=== PATIENT | male | born 1950 | race Caucasian/White ===

== ENCOUNTER 2019-10-26 07:46 | Inpatient (IN) ==
[2019-10-26] MEDS ORDERED: Regadenoson 0.4 MG/5 ML SYRINGE IVP ONE (08:05)
[2019-10-26] MEDS ORDERED: Naloxone 0.4 MG/ML INJ IVP PRN (10:54)
[2019-10-26] MEDS ORDERED: Perflutren Lipid Microsphere 1.3 ML in 0.9 % Sodium Chloride 8.7 ML IVP PRN (11:00)
[2019-10-26] MEDS ORDERED: *HR* Heparin 10,000 UNIT/10 ML VIAL ONE (12:13)
[2019-10-26] MEDS ORDERED: Nitroglycerin 1,000 MCG/10 ML VIAL IV ONE (12:13)
[2019-10-26] MEDS ORDERED: ISOVUE-370 200 ML INFUS..BTL ONE (12:13)
[2019-10-26] MEDS ORDERED: Heparin 1,000 UNITS/500 mL 500 ML ONE (12:13)
[2019-10-26] MEDS ORDERED: 0.9 % Sodium Chloride 1,000 ML ONE ×2 (12:13→12:21)
[2019-10-26] MEDS ORDERED: *HR* Midazolam HCl 2 MG/2 ML VIAL ONE (12:21)
[2019-10-26] MEDS ORDERED: *HR* FentaNYL (PF) 100 MCG/2 ML VIAL ONE (12:21)
[2019-10-26 12:36] LABS: Prothrombin Time 11.5 Seconds (9.4-12.1)
[2019-10-26 12:52] LABS: Chol/HDL Ratio 4.7 (0-4.9)
[2019-10-26] MEDS ORDERED: Ondansetron 4 MG/2 ML VIAL IVP PRN (14:00)
[2019-10-26] MEDS ORDERED: Acetaminophen 325 MG TABLET PO PRN (14:00)
[2019-10-26] MEDS ORDERED: Nitroglycerin 0.4 MG TAB.SUBL SL PRN (14:00)
[2019-10-26] MEDS ORDERED: 0.9 % Sodium Chloride 1,000 ML IVC SCH (14:00)
[2019-10-26] MEDS ORDERED: *HR* Dextrose 50 % in Water (Vial) 50 ML VIAL IVP PRN (14:02)
[2019-10-26] MEDS ORDERED: D5% in Water 1,000 ML IVC PRN (14:02)
[2019-10-26] MEDS ORDERED: Dextrose Gel 15 GM/37.5 ML TUBE PO PRN ×2 (14:02)
[2019-10-26] MEDS ORDERED: *HR* Heparin 5,000 UNIT/ML VIAL IVP PRN (15:19)
[2019-10-26] MEDS ORDERED: *HR* Heparin 5,000 UNIT/ML VIAL IVP ONE (15:19)
[2019-10-26 16:13] LABS: Hematocrit 44.4 % (37.5-50.1); Hemoglobin 14.7 g/dL (12.9-16.9); Mean Corpuscular HGB Conc 33.1 g/dL (31.6-35.5); Mean Corpuscular Hemoglobin 29.6 pg (28.0-33.3); Mean Corpuscular Volume 89.3 fL (83.0-100.0); Mean Platelet Volume 10.7 fL (9.4-12.4); Platelet Count 160 K/mcL (140-400); Red Blood Count 4.97 M/mcL (4.19-5.50); Red Cell Distribution Width 13.4 % (11.5-14.5); White Blood Count 5.7 K/mcL (4.3-11.1)
[2019-10-26] MEDS: Insulin LISPRO 300 UNITS/3 ML VIAL SQ SCH (16:15)
[2019-10-26] MEDS: Heparin 25,000 UNIT/250 ML D5W 25,000 UNIT/250 ML IV.SOLN IVC SCH (16:29)
[2019-10-26 16:43] LABS: Chol/HDL Ratio 5.1 (0-4.9)
[2019-10-26 22:17] LABS: Bilirubin,Urine Negative (Negative); Blood,Urine Small (Negative); Clarity,Urine Clear (Clear); Color,Urine Colorless (Yellow); Glucose,Urine (UA) 30 mg/dL (Normal); Ketones,Urine Negative (Negative); Leukocyte Esterase,Urine Negative (Negative); Mucus,Urine Few per lpf (None-Few); Nitrite,Urine Negative (Negative); PH,Urine 6.5 pH Units (5.0-8.0); Protein,Urine Negative (Neg-Trace); Specific Gravity,Urine 1.019 (1.010-1.025); Urobilinogen,Urine Normal (Normal); WBC,Urine 0-3 per hpf (0-3)
[2019-10-27] MEDS: *HR* Heparin 5,000 UNIT/ML VIAL IVP PRN ×2 (00:42→15:04)
[2019-10-27 06:59] LABS: Basophils # 0.1 K/mcL (0.0-0.2); Basophils % 0.5 %; Eosinophils # 0.1 K/mcL (0.0-0.6); Eosinophils % 1.1 %; Hematocrit 47.8 % (37.5-50.1); Hemoglobin 15.8 g/dL (12.9-16.9); Immature Granulocytes % 0.2 % (0-4); Lymphocytes # 1.8 K/mcL (0.6-4.6); Lymphocytes % 19.2 %; Mean Corpuscular HGB Conc 33.1 g/dL (31.6-35.5); Mean Corpuscular Hemoglobin 29.8 pg (28.0-33.3); Mean Platelet Volume 10.5 fL (9.4-12.4); Monocytes # 0.6 K/mcL (0.0-1.3); Monocytes % 6.6 %; Neutrophils # 6.8 K/mcL (1.6-8.9); Platelet Count 213 K/mcL (140-400); Red Blood Count 5.31 M/mcL (4.19-5.50); Red Cell Distribution Width 13.5 % (11.5-14.5); Segmented Neutrophils % 72.4 %
[2019-10-27 07:08] LABS: White Blood Count 9.4 K/mcL (4.3-11.1)
[2019-10-27 07:12] LABS: BUN/Creatinine Ratio 20 (6-26); Blood Urea Nitrogen 19 mg/dL (8-23); Calcium 10.1 mg/dL (8.6-10.3); Carbon Dioxide 26 mEq/L (23-29); Chloride 100 mEq/L (98-107); Glucose 167 mg/dL (70-105); Osmolality,Calculated 290 (280-300); Potassium 4.1 mEq/L (3.5-5.1); Sodium 137 mEq/L (136-145); eGFR For African Americans > 60 (> 60); eGFR For Non-African Americans > 60 (> 60)
[2019-10-27 07:27] LABS: Estimated Average Glucose 171 mg/dl
[2019-10-27] MEDS: Insulin LISPRO 300 UNITS/3 ML VIAL SQ SCH ×3 (08:49→16:44)
[2019-10-27] MEDS ORDERED: Aspirin 81 MG TAB.CHEW PO SCH (09:00)
[2019-10-27] MEDS: Heparin 25,000 UNIT/250 ML D5W 25,000 UNIT/250 ML IV.SOLN IVC SCH (15:25)
[2019-10-27] MEDS: Chlorhexidine Rinse 15 ML MOUTHWASH MM SCH (21:13)
[2019-10-28] MEDS: Chlorhexidine Rinse 15 ML MOUTHWASH MM SCH ×2 (05:42→19:29)
[2019-10-28] MEDS ORDERED: Aspirin 81 MG TAB.CHEW PO ONE (06:00)
[2019-10-28] MEDS ORDERED: NiCARdipine 2.5 MG/10 ML Syringe IVPB ONE (06:28)
[2019-10-28] MEDS ORDERED: *HR* Midazolam HCl 5 MG/5 ML VIAL IVP ONE (06:32)
[2019-10-28] MEDS ORDERED: *HR* FentaNYL (PF) 1,000 MCG/20 ML VIAL ONE (06:32)
[2019-10-28] MEDS ORDERED: *HR* Etomidate 20 MG/10 ML AMPUL IVP ONE (06:35)
[2019-10-28] MEDS ORDERED: Famotidine 20 MG/2 ML VIAL ONE (06:35)
[2019-10-28] MEDS ORDERED: Protamine Sulfate 250 MG/25 ML VIAL IVP ONE (06:37)
[2019-10-28] MEDS ORDERED: Calcium Gluconate 1,000 MG/10 ML VIAL ONE (06:37)
[2019-10-28] MEDS ORDERED: Tranexamic Acid 1,000 MG/10 ML VIAL ONE ×3 (06:37→11:03)
[2019-10-28] MEDS ORDERED: CeFAZolin Syr 2,000MG/20 ML 2,000 MG/20 ML SYRINGE IVPB ONE (07:00)
[2019-10-28] MEDS ORDERED: Dextrose 50 % in Water (Vial) 30 ML, Sodium Bicarbonate 20 MEQ, Potassium Chloride 15 M... TH ONE (07:45)
[2019-10-28] MEDS ORDERED: Dextrose 50 % in Water (Vial) 30 ML, Sodium Bicarbonate 20 MEQ, Lidocaine 1% 5 ML, Insu... TH ONE ×3 (07:45)
[2019-10-28] MEDS ORDERED: Heparin 15,000 UNIT in 0.9 % Sodium Chloride 500 ML IV ONE (07:45)
[2019-10-28] MEDS ORDERED: Insulin Human Regular 100 UNIT in 0.9 % Sodium Chloride 100 ML IV PRN (07:45)
[2019-10-28] MEDS ORDERED: Norepinephrine 4 MG in 0.9 % Sodium Chloride 250 ML IVC PRN (07:45)
[2019-10-28 08:16] LABS: ABG Base Excess -2 mEq/L (-2 to 3); ABG Chloride 105 mEq/L (98-107); ABG Glucose 201 mg/dL (60-95); ABG HCO3 24 mEq/L (21-27); ABG Ionized Calcium 1.15 mmol/L (1.15-1.35); ABG Oxygen Saturation 99 % (95-98); ABG PCO2 44 mmHg (35-45); ABG PH 7.34 pH Units (7.32-7.45); ABG PO2 139 mmHg (85-104); ABG TCO2 25 mEq/L (20-26)
[2019-10-28] MEDS ORDERED: niCARdipine 40 MG/200 ML MLS IVC ONE (08:40)
[2019-10-28 09:21] LABS: ABG Base Excess -5 mEq/L (-2 to 3); ABG Chloride 107 mEq/L (98-107); ABG Glucose 219 mg/dL (60-95); ABG HCO3 22 mEq/L (21-27); ABG Ionized Calcium 0.97 mmol/L (1.15-1.35); ABG Oxygen Saturation 98 % (95-98); ABG PCO2 45 mmHg (35-45); ABG PO2 107 mmHg (85-104); ABG TCO2 23 mEq/L (20-26)
[2019-10-28] MEDS ORDERED: *HR* PHENYLEPHRINE 1,000 MCG/10 ML SYRINGE IVP ONE (09:26)
[2019-10-28 09:57] LABS: ABG Base Excess 1 mEq/L (-2 to 3); ABG Chloride 99 mEq/L (98-107); ABG Glucose 246 mg/dL (60-95); ABG HCO3 26 mEq/L (21-27); ABG Ionized Calcium 1.02 mmol/L (1.15-1.35); ABG Oxygen Saturation 100 % (95-98); ABG PCO2 44 mmHg (35-45); ABG PH 7.38 pH Units (7.32-7.45); ABG PO2 605 mmHg (85-104); ABG TCO2 27 mEq/L (20-26)
[2019-10-28 10:38] LABS: ABG Base Excess 1 mEq/L (-2 to 3); ABG Chloride 100 mEq/L (98-107); ABG Glucose 267 mg/dL (60-95); ABG HCO3 26 mEq/L (21-27); ABG Oxygen Saturation 100 % (95-98); ABG PCO2 42 mmHg (35-45); ABG PO2 619 mmHg (85-104); ABG TCO2 27 mEq/L (20-26)
[2019-10-28] MEDS ORDERED: *HR* Rocuronium Bromide 50 MG/5 ML VIAL ONE ×2 (11:02)
[2019-10-28 11:12] LABS: ABG Base Excess 1 mEq/L (-2 to 3); ABG Chloride 100 mEq/L (98-107); ABG Glucose 221 mg/dL (60-95); ABG HCO3 27 mEq/L (21-27); ABG Ionized Calcium 1.19 mmol/L (1.15-1.35); ABG Oxygen Saturation 100 % (95-98); ABG PCO2 44 mmHg (35-45); ABG PH 7.39 pH Units (7.32-7.45); ABG PO2 539 mmHg (85-104); ABG TCO2 28 mEq/L (20-26)
[2019-10-28] MEDS ORDERED: Potassium Chloride 40 MEQ/200 ML BAG IVPB PRN (11:49)
[2019-10-28] MEDS ORDERED: Insulin Regular, Human 100 UNIT/ML IV PRN (11:49)
[2019-10-28] MEDS ORDERED: *HR* Dextrose 50 % in Water (Vial) 50 ML VIAL IVP PRN (11:49)
[2019-10-28] MEDS ORDERED: Calcium Gluconate 1gm/50mL 1 GM/50 ML BAG IVPB PRN (11:50)
[2019-10-28] MEDS ORDERED: Acetaminophen 650 MG RECTAL SUPP RC PRN (11:50)
[2019-10-28] MEDS ORDERED: Albumin Human 5% 12.5 GM/250 ML IV.SOLN IVPB PRN (11:50)
[2019-10-28 11:58] LABS: ABG Base Excess 1 mEq/L (-2 to 3); ABG Chloride 102 mEq/L (98-107); ABG Glucose 188 mg/dL (60-95); ABG HCO3 25 mEq/L (21-27); ABG Ionized Calcium 1.32 mmol/L (1.15-1.35); ABG Oxygen Saturation 96 % (95-98); ABG PCO2 41 mmHg (35-45); ABG PO2 83 mmHg (85-104); ABG TCO2 27 mEq/L (20-26)
[2019-10-28] MEDS ORDERED: 0.9 % Sodium Chloride w KCl 20 MEQ/1,000 ML MLS IVC SCH (12:00)
[2019-10-28] MEDS ORDERED: Norepinephrine 4 MG/254 ML IV.SOLN IVC SCH (12:00)
[2019-10-28] MEDS ORDERED: Insulin Human Regular 100 UNIT in 0.9 % Sodium Chloride 100 ML IVC SCH (12:00)
[2019-10-28 12:42] LABS: ABG Base Excess 2 mEq/L (-2 to 3); ABG HCO3 28 mEq/L (21-27); ABG Oxygen Saturation 98 % (95-98); ABG PCO2 48 mmHg (35-45); ABG PH 7.37 pH Units (7.32-7.45); ABG PO2 102 mmHg (85-104); ABG TCO2 29 mEq/L (20-26); Blood Gas Modality ASSIST CONTROL; Blood Gas VT 600 cc
[2019-10-28 12:53] LABS: Basophils % 0.2 %; Eosinophils # 0.1 K/mcL (0.0-0.6); Eosinophils % 0.6 %; Hematocrit 35.3 % (37.5-50.1); Lymphocytes # 1.1 K/mcL (0.6-4.6); Lymphocytes % 8.8 %; Mean Corpuscular HGB Conc 33.4 g/dL (31.6-35.5); Mean Corpuscular Hemoglobin 29.4 pg (28.0-33.3); Mean Platelet Volume 10.5 fL (9.4-12.4); Monocytes # 0.6 K/mcL (0.0-1.3); Monocytes % 5.1 %; Neutrophils # 10.6 K/mcL (1.6-8.9); Platelet Count 101 K/mcL (140-400); Red Blood Count 4.01 M/mcL (4.19-5.50); Red Cell Distribution Width 13.5 % (11.5-14.5); Segmented Neutrophils % 84.3 %; White Blood Count 12.6 K/mcL (4.3-11.1)
[2019-10-28 12:56] LABS: Hemoglobin 11.8 g/dL (12.9-16.9)
[2019-10-28 13:02] LABS: INR 1.3; Prothrombin Time 15.1 Seconds (9.4-12.1)
[2019-10-28 13:04] LABS: Activated Partial Thrombo Time 27.3 Seconds (26.0-36.0)
[2019-10-28 13:09] LABS: BUN/Creatinine Ratio 27 (6-26); Blood Urea Nitrogen 22 mg/dL (8-23); Calcium 8.7 mg/dL (8.6-10.3); Carbon Dioxide 27 mEq/L (23-29); Chloride 105 mEq/L (98-107); Glucose 149 mg/dL (70-105); Magnesium 2.3 mg/dL (1.6-2.6); Osmolality,Calculated 294 (280-300); Potassium 3.7 mEq/L (3.5-5.1); Sodium 139 mEq/L (136-145); eGFR For African Americans > 60 (> 60); eGFR For Non-African Americans > 60 (> 60)
[2019-10-28] MEDS: *HR* FentaNYL (PF) 100 MCG/2 ML VIAL IVP PRN ×2 (13:30→19:29)
[2019-10-28] MEDS: Metoclopramide 10 MG/2 ML VIAL IVP SCH ×3 (14:00→22:56)
[2019-10-28] MEDS: Pantoprazole 40 MG VIAL IVP SCH (14:00)
[2019-10-28] MEDS: Heparin 25,000 UNIT/250 ML D5W 25,000 UNIT/250 ML IV.SOLN IVC SCH (14:01)
[2019-10-28] MEDS: *HR* OxyCODONE/APAP 5/325 TABLET PO PRN ×2 (14:10→22:56)
[2019-10-28] MEDS: niCARdipine 20 MG/200 ML MLS IVC SCH ×4 (14:11→22:28)
[2019-10-28 15:40] LABS: ABG Base Excess 0 mEq/L (-2 to 3); ABG HCO3 25 mEq/L (21-27); ABG Oxygen Saturation 97 % (95-98); ABG PCO2 41 mmHg (35-45); ABG PO2 92 mmHg (85-104); ABG TCO2 26 mEq/L (20-26); Blood Gas Modality CPAP/PS; Blood Gas VT 600 cc
[2019-10-28] MEDS ORDERED: *HR* Magnesium Sulfate 2 GM/50 ML PIGGYBACK IVPB ONE (16:24)
[2019-10-28] MEDS ORDERED: Albumin Human 25% 25 GM/100 ML IV.SOLN IVPB ONE (16:24)
[2019-10-28] MEDS ORDERED: Tranexamic Acid 1,000 MG/10 ML VIAL IR ONE (16:24)
[2019-10-28] MEDS ORDERED: Lidocaine 2% Syringe 100 MG/5 ML IVP ONE (16:24)
[2019-10-28] MEDS ORDERED: Mannitol 25% vial 12.5 GM/50 ML VIAL IVPB ONE (16:24)
[2019-10-28] MEDS ORDERED: *HR* Heparin 10,000 UNIT/10 ML VIAL IR ONE (16:24)
[2019-10-28] MEDS ORDERED: *HR* Phenylephrine 10 MG/ML VIAL IVC ONE (16:24)
[2019-10-28 17:37] LABS: ABG Base Excess 0 mEq/L (-2 to 3); ABG HCO3 25 mEq/L (21-27); ABG Oxygen Saturation 94 % (95-98); ABG PCO2 39 mmHg (35-45); ABG PH 7.42 pH Units (7.32-7.45); ABG PO2 70 mmHg (85-104); ABG TCO2 26 mEq/L (20-26)
[2019-10-28 17:47] LABS: Hematocrit 36.1 % (37.5-50.1)
[2019-10-28] MEDS: CeFAZolin 2 GM/120 ML BAG IVPB SCH (19:28)
[2019-10-29] MEDS: *HR* FentaNYL (PF) 100 MCG/2 ML VIAL IVP PRN ×4 (02:06→16:34)
[2019-10-29] MEDS: CeFAZolin 2 GM/120 ML BAG IVPB SCH (03:27)
[2019-10-29 03:29] LABS: Basophils % 0.1 %; Hematocrit 34.9 % (37.5-50.1); Hemoglobin 11.6 g/dL (12.9-16.9); Immature Granulocytes % 0.3 % (0-4); Lymphocytes # 0.7 K/mcL (0.6-4.6); Lymphocytes % 6.8 %; Mean Corpuscular HGB Conc 33.2 g/dL (31.6-35.5); Mean Corpuscular Hemoglobin 29.3 pg (28.0-33.3); Mean Corpuscular Volume 88.1 fL (83.0-100.0); Mean Platelet Volume 10.5 fL (9.4-12.4); Monocytes % 9.4 %; Neutrophils # 8.5 K/mcL (1.6-8.9); Platelet Count 122 K/mcL (140-400); Red Blood Count 3.96 M/mcL (4.19-5.50); Red Cell Distribution Width 13.9 % (11.5-14.5); Segmented Neutrophils % 83.4 %; White Blood Count 10.2 K/mcL (4.3-11.1)
[2019-10-29 03:51] LABS: BUN/Creatinine Ratio 30 (6-26); Blood Urea Nitrogen 23 mg/dL (8-23); Calcium 8.3 mg/dL (8.6-10.3); Carbon Dioxide 23 mEq/L (23-29); Chloride 106 mEq/L (98-107); Glucose 145 mg/dL (70-105); Magnesium 1.8 mg/dL (1.6-2.6); Osmolality,Calculated 292 (280-300); Potassium 4.2 mEq/L (3.5-5.1); Sodium 138 mEq/L (136-145); eGFR For African Americans > 60 (> 60); eGFR For Non-African Americans > 60 (> 60)
[2019-10-29] MEDS: niCARdipine 20 MG/200 ML MLS IVC SCH (03:57)
[2019-10-29 03:59] LABS: Heparin anti-factor XA UFH < 0.04 IU/mL (0.30-0.70)
[2019-10-29 04:00] LABS: INR 1.2; Prothrombin Time 13.4 Seconds (9.4-12.1)
[2019-10-29 04:01] LABS: Activated Partial Thrombo Time 28.6 Seconds (26.0-36.0)
[2019-10-29] MEDS: Metoclopramide 10 MG/2 ML VIAL IVP SCH ×3 (05:11→16:51)
[2019-10-29] MEDS: *HR* OxyCODONE/APAP 5/325 TABLET PO PRN ×4 (05:11→20:52)
[2019-10-29] MEDS: Chlorhexidine Rinse 15 ML MOUTHWASH MM SCH ×2 (07:59→20:50)
[2019-10-29] MEDS: Pantoprazole 40 MG VIAL IVP SCH (08:00)
[2019-10-29] MEDS ORDERED: Furosemide 20 MG/2 ML VIAL IVP SCH (09:00)
[2019-10-29] MEDS ORDERED: Aspirin Enteric Coated 81 MG Tablet PO SCH (09:00)
[2019-10-29] MEDS ORDERED: Naloxone 0.4 MG/ML INJ IVP PRN (11:45)
[2019-10-29] MEDS ORDERED: Nitroglycerin 0.4 MG TAB.SUBL SL PRN (11:45)
[2019-10-29] MEDS ORDERED: Ondansetron 4 MG/2 ML VIAL IVP PRN (11:45)
[2019-10-29] MEDS ORDERED: Dextrose Gel 15 GM/37.5 ML TUBE PO PRN ×4 (11:45)
[2019-10-29] MEDS ORDERED: D5% in Water 1,000 ML IVC PRN (11:45)
[2019-10-29] MEDS ORDERED: *HR* Dextrose 50 % in Water (Vial) 50 ML VIAL IVP PRN ×3 (11:45)
[2019-10-29] MEDS ORDERED: Insulin Regular, Human 100 UNIT/ML IV PRN (11:45)
[2019-10-29] MEDS ORDERED: Acetaminophen 325 MG TABLET PO PRN (11:45)
[2019-10-29] MEDS ORDERED: Insulin Human Regular 100 UNIT in 0.9 % Sodium Chloride 100 ML IVC SCH (12:00)
[2019-10-29] MEDS: Insulin LISPRO 300 UNITS/3 ML VIAL SQ SCH ×3 (13:28→20:43)
[2019-10-29] MEDS: Finasteride 5 MG TABLET PO SCH (14:18)
[2019-10-29] MEDS: Multivit/Ca/Min/Fe/FA 1 TAB TABLET PO SCH (14:19)
[2019-10-29] MEDS: *HR* Glimepiride 4 MG TABLET PO SCH (14:19)
[2019-10-29] MEDS: *HR* Heparin 5,000 UNIT/ML VIAL SQ SCH ×2 (14:20→16:50)
[2019-10-29] MEDS: *HR* Metformin 500 MG TABLET PO SCH ×2 (14:20→20:53)
[2019-10-29] MEDS: Furosemide 20 MG/2 ML VIAL IVP SCH (20:51)
[2019-10-30] MEDS: Metoclopramide 10 MG/2 ML VIAL IVP SCH ×4 (01:19→18:26)
[2019-10-30] MEDS: *HR* Heparin 5,000 UNIT/ML VIAL SQ SCH ×2 (05:41→18:26)
[2019-10-30 06:30] LABS: Basophils % 0.2 %; Eosinophils % 0.2 %; Hematocrit 32.7 % (37.5-50.1); Hemoglobin 10.7 g/dL (12.9-16.9); Immature Granulocytes % 0.5 % (0-4); Lymphocytes # 0.9 K/mcL (0.6-4.6); Mean Corpuscular HGB Conc 32.7 g/dL (31.6-35.5); Mean Corpuscular Hemoglobin 29.4 pg (28.0-33.3); Mean Corpuscular Volume 89.8 fL (83.0-100.0); Mean Platelet Volume 11.1 fL (9.4-12.4); Monocytes # 0.9 K/mcL (0.0-1.3); Monocytes % 8.2 %; Neutrophils # 8.8 K/mcL (1.6-8.9); Platelet Count 115 K/mcL (140-400); Red Blood Count 3.64 M/mcL (4.19-5.50); Red Cell Distribution Width 13.7 % (11.5-14.5); Segmented Neutrophils % 82.9 %; White Blood Count 10.6 K/mcL (4.3-11.1)
[2019-10-30 06:43] LABS: BUN/Creatinine Ratio 31 (6-26); Blood Urea Nitrogen 24 mg/dL (8-23); Calcium 8.5 mg/dL (8.6-10.3); Carbon Dioxide 26 mEq/L (23-29); Chloride 98 mEq/L (98-107); Glucose 184 mg/dL (70-105); Osmolality,Calculated 287 (280-300); Potassium 3.8 mEq/L (3.5-5.1); Sodium 134 mEq/L (136-145); eGFR For African Americans > 60 (> 60); eGFR For Non-African Americans > 60 (> 60)
[2019-10-30] MEDS: Pantoprazole 40 MG VIAL IVP SCH (08:33)
[2019-10-30] MEDS: Chlorhexidine Rinse 15 ML MOUTHWASH MM SCH ×2 (08:33→20:45)
[2019-10-30] MEDS: Furosemide 20 MG/2 ML VIAL IVP SCH ×2 (08:34→20:45)
[2019-10-30] MEDS: *HR* Glimepiride 4 MG TABLET PO SCH (08:34)
[2019-10-30] MEDS: Aspirin Enteric Coated 81 MG Tablet PO SCH (08:35)
[2019-10-30] MEDS: Multivit/Ca/Min/Fe/FA 1 TAB TABLET PO SCH (08:35)
[2019-10-30] MEDS: Finasteride 5 MG TABLET PO SCH (08:35)
[2019-10-30] MEDS: Insulin LISPRO 300 UNITS/3 ML VIAL SQ SCH ×4 (08:36→20:46)
[2019-10-30] MEDS: *HR* Metformin 500 MG TABLET PO SCH ×2 (08:36→20:45)
[2019-10-30] MEDS ORDERED: Amiodarone Premix 150 MG/100 ML BAG IVPB ONE (21:22)
[2019-10-30] MEDS ORDERED: Amiodarone Premix 360 MG/200 ML BAG IVC ONE (21:30)
[2019-10-31] MEDS: Metoclopramide 10 MG/2 ML VIAL IVP SCH ×3 (00:07→12:04)
[2019-10-31] MEDS: Amiodarone Premix 360 MG/200 ML BAG IVC SCH ×2 (03:45→15:45)
[2019-10-31] MEDS: *HR* Heparin 5,000 UNIT/ML VIAL SQ SCH ×2 (05:58→17:55)
[2019-10-31] MEDS: Insulin LISPRO 300 UNITS/3 ML VIAL SQ SCH ×4 (08:16→21:41)
[2019-10-31] MEDS: Aspirin Enteric Coated 81 MG Tablet PO SCH (08:20)
[2019-10-31] MEDS: Multivit/Ca/Min/Fe/FA 1 TAB TABLET PO SCH (08:21)
[2019-10-31] MEDS: *HR* Glimepiride 4 MG TABLET PO SCH (08:21)
[2019-10-31] MEDS: Pantoprazole 40 MG VIAL IVP SCH (08:21)
[2019-10-31] MEDS: Finasteride 5 MG TABLET PO SCH (08:21)
[2019-10-31] MEDS: Chlorhexidine Rinse 15 ML MOUTHWASH MM SCH ×2 (08:21→21:38)
[2019-10-31] MEDS: Furosemide 20 MG/2 ML VIAL IVP SCH ×2 (08:21→21:40)
[2019-10-31] MEDS: *HR* Metformin 500 MG TABLET PO SCH ×2 (08:21→21:39)
[2019-11-01] MEDS: *HR* Heparin 5,000 UNIT/ML VIAL SQ SCH ×2 (06:30→16:33)
[2019-11-01] MEDS: Multivit/Ca/Min/Fe/FA 1 TAB TABLET PO SCH (07:50)
[2019-11-01] MEDS: Finasteride 5 MG TABLET PO SCH (07:50)
[2019-11-01] MEDS: Pantoprazole 40 MG VIAL IVP SCH (07:50)
[2019-11-01] MEDS: *HR* Glimepiride 4 MG TABLET PO SCH (07:50)
[2019-11-01] MEDS: *HR* Metformin 500 MG TABLET PO SCH ×2 (07:50→21:00)
[2019-11-01] MEDS: Chlorhexidine Rinse 15 ML MOUTHWASH MM SCH ×2 (07:50→20:59)
[2019-11-01] MEDS: Aspirin Enteric Coated 81 MG Tablet PO SCH (07:51)
[2019-11-01] MEDS: Insulin LISPRO 300 UNITS/3 ML VIAL SQ SCH ×4 (07:57→21:01)
[2019-11-01] MEDS: Amiodarone Premix 360 MG/200 ML BAG IVC SCH (20:59)
[2019-11-01] MEDS: *HR* OxyCODONE/APAP 5/325 TABLET PO PRN (21:01)
[2019-11-02] MEDS: *HR* Heparin 5,000 UNIT/ML VIAL SQ SCH ×2 (05:48→18:44)
[2019-11-02] MEDS: Chlorhexidine Rinse 15 ML MOUTHWASH MM SCH ×2 (07:31→20:53)
[2019-11-02] MEDS: Multivit/Ca/Min/Fe/FA 1 TAB TABLET PO SCH (07:32)
[2019-11-02] MEDS: Finasteride 5 MG TABLET PO SCH (07:32)
[2019-11-02] MEDS: *HR* Metformin 500 MG TABLET PO SCH ×2 (07:32→20:53)
[2019-11-02] MEDS: *HR* Glimepiride 4 MG TABLET PO SCH (07:32)
[2019-11-02] MEDS: Aspirin Enteric Coated 81 MG Tablet PO SCH (07:32)
[2019-11-02] MEDS: Pantoprazole 40 MG VIAL IVP SCH (07:33)
[2019-11-02] MEDS: Amiodarone Premix 360 MG/200 ML BAG IVC SCH (07:41)
[2019-11-02] MEDS: Insulin LISPRO 300 UNITS/3 ML VIAL SQ SCH ×4 (07:48→21:17)
[2019-11-02] MEDS: *HR* Amiodarone 200 MG TABLET PO SCH ×2 (10:10→20:54)
[2019-11-02] MEDS: *HR* OxyCODONE/APAP 5/325 TABLET PO PRN (20:54)
[2019-11-03] MEDS: *HR* Heparin 5,000 UNIT/ML VIAL SQ SCH ×2 (05:43→17:44)
[2019-11-03] MEDS: Multivit/Ca/Min/Fe/FA 1 TAB TABLET PO SCH (08:50)
[2019-11-03] MEDS: Finasteride 5 MG TABLET PO SCH (08:50)
[2019-11-03] MEDS: *HR* Amiodarone 200 MG TABLET PO SCH ×2 (08:50→21:41)
[2019-11-03] MEDS: Chlorhexidine Rinse 15 ML MOUTHWASH MM SCH ×2 (08:50→21:41)
[2019-11-03] MEDS: Aspirin Enteric Coated 81 MG Tablet PO SCH (08:50)
[2019-11-03] MEDS: *HR* Glimepiride 4 MG TABLET PO SCH (08:51)
[2019-11-03] MEDS: *HR* Metformin 500 MG TABLET PO SCH ×2 (08:51→21:41)
[2019-11-03] MEDS: Pantoprazole 40 MG VIAL IVP SCH (08:51)
[2019-11-03] MEDS: Insulin LISPRO 300 UNITS/3 ML VIAL SQ SCH ×4 (08:53→21:42)
[2019-11-03] MEDS: *HR* OxyCODONE/APAP 5/325 TABLET PO PRN (21:41)
[2019-11-04] MEDS: *HR* Heparin 5,000 UNIT/ML VIAL SQ SCH ×2 (05:08→17:31)
[2019-11-04] MEDS: Chlorhexidine Rinse 15 ML MOUTHWASH MM SCH ×2 (07:36→21:09)
[2019-11-04] MEDS: Aspirin Enteric Coated 81 MG Tablet PO SCH (07:36)
[2019-11-04] MEDS: Finasteride 5 MG TABLET PO SCH (07:36)
[2019-11-04] MEDS: Multivit/Ca/Min/Fe/FA 1 TAB TABLET PO SCH (07:36)
[2019-11-04] MEDS: Pantoprazole 40 MG VIAL IVP SCH (07:37)
[2019-11-04] MEDS: *HR* Amiodarone 200 MG TABLET PO SCH ×2 (07:37→21:09)
[2019-11-04] MEDS: *HR* Glimepiride 4 MG TABLET PO SCH (07:37)
[2019-11-04] MEDS: *HR* Metformin 500 MG TABLET PO SCH ×2 (07:37→21:09)
[2019-11-04] MEDS: Insulin LISPRO 300 UNITS/3 ML VIAL SQ SCH ×4 (07:38→21:09)
[2019-11-04] MEDS: levoFLOXacin 500 MG TABLET PO SCH (10:20)
[2019-11-04 10:35] LABS: BUN/Creatinine Ratio 24 (6-26); Blood Urea Nitrogen 25 mg/dL (8-23); Calcium 9.5 mg/dL (8.6-10.3); Carbon Dioxide 23 mEq/L (23-29); Chloride 93 mEq/L (98-107); Glucose 199 mg/dL (70-105); Osmolality,Calculated 278 (280-300); Potassium 3.7 mEq/L (3.5-5.1); Sodium 129 mEq/L (136-145); eGFR For African Americans > 60 (> 60); eGFR For Non-African Americans > 60 (> 60)
[2019-11-04 10:36] LABS: Basophils % 0.3 %; Eosinophils # 0.1 K/mcL (0.0-0.6); Eosinophils % 0.4 %; Hematocrit 36.8 % (37.5-50.1); Hemoglobin 11.8 g/dL (12.9-16.9); Immature Granulocytes % 0.7 % (0-4); Lymphocytes # 0.8 K/mcL (0.6-4.6); Lymphocytes % 6.7 %; Mean Corpuscular HGB Conc 32.1 g/dL (31.6-35.5); Mean Corpuscular Hemoglobin 28.4 pg (28.0-33.3); Mean Corpuscular Volume 88.7 fL (83.0-100.0); Mean Platelet Volume 10.7 fL (9.4-12.4); Monocytes # 0.9 K/mcL (0.0-1.3); Monocytes % 7.2 %; Neutrophils # 10.6 K/mcL (1.6-8.9); Platelet Count 323 K/mcL (140-400); Red Blood Count 4.15 M/mcL (4.19-5.50); Red Cell Distribution Width 13.9 % (11.5-14.5); Segmented Neutrophils % 84.7 %; White Blood Count 12.5 K/mcL (4.3-11.1)
[2019-11-04] MEDS: *HR* OxyCODONE/APAP 5/325 TABLET PO PRN (21:09)
[2019-11-05] MEDS: *HR* Heparin 5,000 UNIT/ML VIAL SQ SCH (05:51)
[2019-11-05 07:24] VITALS: BP 129/74
[2019-11-05] MEDS: *HR* Metformin 500 MG TABLET PO SCH (07:24)
[2019-11-05] MEDS: Chlorhexidine Rinse 15 ML MOUTHWASH MM SCH (07:24)
[2019-11-05] MEDS: levoFLOXacin 500 MG TABLET PO SCH (07:24)
[2019-11-05] MEDS: Finasteride 5 MG TABLET PO SCH (07:25)
[2019-11-05] MEDS: Aspirin Enteric Coated 81 MG Tablet PO SCH (07:25)
[2019-11-05] MEDS: *HR* Amiodarone 200 MG TABLET PO SCH (07:25)
[2019-11-05] MEDS: *HR* Glimepiride 4 MG TABLET PO SCH (07:25)
[2019-11-05] MEDS: Multivit/Ca/Min/Fe/FA 1 TAB TABLET PO SCH (07:25)
[2019-11-05] MEDS: Insulin LISPRO 300 UNITS/3 ML VIAL SQ SCH (07:27)
== END 2019-11-05 13:19 | disposition home or self-care (01) | DRG 234 ==
LOC: 3BNU 07:46 → CARSER 07:46 → ICNU 10-28 12:57 → 2NNU 10-29 19:53 → ICNU 10-29 22:18 → 2NNU 10-29 22:27
PROVIDERS: ADMIT Internal Medicine Cardiovascular Disease; ATTEND Internal Medicine Cardiovascular Disease

== ENCOUNTER 2020-10-05 17:39 | Inpatient (IN) ==
[2020-10-05] MEDS ORDERED: Ketorolac 15 MG/ML VIAL IVP ONE (18:51)
[2020-10-05] MEDS ORDERED: Isovue-370 500 ML BOTTLE IVP ONE (18:51)
[2020-10-05] MEDS ORDERED: 0.9 % Sodium Chloride 1,000 ML IVC ONE ×2 (18:51→20:23)
[2020-10-05 19:18] LABS: Bilirubin,Urine Negative (Negative); Blood,Urine Large (Negative); Clarity,Urine Clear (Clear); Color,Urine Light-Yellow (Yellow); Glucose,Urine (UA) Normal (Normal); Ketones,Urine Negative (Negative); Leukocyte Esterase,Urine Trace (Negative); Mucus,Urine Few per lpf (None-Few); Nitrite,Urine Negative (Negative); Protein,Urine Trace mg/dL (Neg-Trace); RBC,Urine TNTC per hpf (0-3); Specific Gravity,Urine 1.015 (1.010-1.025); Urobilinogen,Urine Normal (Normal)
[2020-10-05 19:49] LABS: Basophils % 0.2 %; Eosinophils # 0.1 K/mcL (0.0-0.6); Eosinophils % 0.6 %; Hematocrit 41.8 % (37.5-50.1); Hemoglobin 13.5 g/dL (12.9-16.9); Immature Granulocytes % 0.2 % (0-4); Lymphocytes % 11.5 %; Mean Corpuscular HGB Conc 32.3 g/dL (31.6-35.5); Mean Corpuscular Hemoglobin 28.4 pg (28.0-33.3); Mean Platelet Volume 10.8 fL (9.4-12.4); Monocytes # 0.8 K/mcL (0.0-1.3); Monocytes % 9.4 %; Neutrophils # 6.8 K/mcL (1.6-8.9); Platelet Count 173 K/mcL (140-400); Red Blood Count 4.75 M/mcL (4.19-5.50); Red Cell Distribution Width 13.3 % (11.5-14.5); Segmented Neutrophils % 78.1 %; White Blood Count 8.8 K/mcL (4.3-11.1)
[2020-10-05 20:02] LABS: Albumin 4.2 g/dL (3.5-5.7); Albumin/Globulin Ratio 1.4 (1.1-2.2); Bilirubin,Direct 0.2 mg/dL (0.0-0.2); Bilirubin,Indirect 0.6 mg/dL (0.0-1.0); Bilirubin,Total 0.8 mg/dL (0.3-1.0); Calcium 9.8 mg/dL (8.6-10.3); Globulin 3.1 g/dL (2.4-3.5); Potassium 4.4 mEq/L (3.5-5.1); Total Protein 7.3 g/dL (6.4-8.9)
[2020-10-05] MEDS ORDERED: cefTRIAXone 1,000 MG in Water for inj. (sterile) 10 ML IVP SCH (22:00)
[2020-10-05] MEDS ORDERED: cefTRIAXone 1,000 MG in Water for inj. (sterile) 10 ML IVP STA (22:06)
[2020-10-05] MEDS ORDERED: 0.9 % Sodium Chloride 1,000 ML IVC SCH (23:45)
[2020-10-05] MEDS ORDERED: Ondansetron 4 MG/2 ML VIAL IVP PRN (23:56)
[2020-10-05] MEDS ORDERED: Naloxone 0.4 MG/ML INJ IVP PRN (23:56)
[2020-10-05] MEDS ORDERED: Acetaminophen 325 MG TABLET PO PRN (23:56)
[2020-10-06] MEDS ORDERED: Dextrose Gel 15 GM/37.5 ML TUBE PO PRN ×4 (01:15→13:40)
[2020-10-06] MEDS ORDERED: *HR* Dextrose 50 % in Water (Vial) 50 ML VIAL IVP PRN ×2 (01:15→13:40)
[2020-10-06] MEDS ORDERED: D5% in Water 1,000 ML IVC PRN ×2 (01:15→13:40)
[2020-10-06] MEDS ORDERED: Metoprolol XL (24 HR) Succ 25 MG TAB.ER.24H PO ONE (02:30)
[2020-10-06 04:43] LABS: Hematocrit 35.6 % (37.5-50.1); Mean Corpuscular HGB Conc 32.3 g/dL (31.6-35.5); Mean Corpuscular Hemoglobin 28.4 pg (28.0-33.3); Mean Corpuscular Volume 87.9 fL (83.0-100.0); Mean Platelet Volume 10.8 fL (9.4-12.4); Platelet Count 144 K/mcL (140-400); Red Blood Count 4.05 M/mcL (4.19-5.50); Red Cell Distribution Width 13.4 % (11.5-14.5); White Blood Count 6.5 K/mcL (4.3-11.1)
[2020-10-06 04:46] LABS: Hemoglobin 11.5 g/dL (12.9-16.9)
[2020-10-06 05:01] LABS: Calcium 8.4 mg/dL (8.6-10.3); Potassium 3.8 mEq/L (3.5-5.1)
[2020-10-06] MEDS: Insulin LISPRO 300 UNITS/3 ML VIAL SUBQ SCH ×4 (05:15→23:38)
[2020-10-06] MEDS ORDERED: cefTRIAXone 1,000 MG in 0.9 % Sodium Chloride Mini Bag 100 ML IVPB SCH (09:00)
[2020-10-06] MEDS ORDERED: *HR* FentaNYL (PF) 100 MCG/2 ML VIAL IVP PRN (10:19)
[2020-10-06] MEDS ORDERED: *HR* HYDROmorphone PF 0.5 MG/0.5 ML SYRINGE IVP PRN (10:19)
[2020-10-06] MEDS ORDERED: Isovue-300 50ML VIAL ONE (10:53)
[2020-10-06] MEDS ORDERED: *HR* FentaNYL (PF) 100 MCG/2 ML VIAL ONE (11:49)
[2020-10-06] MEDS ORDERED: *HR* Propofol 200 MG/20 ML VIAL IVP ONE (11:49)
[2020-10-06] MEDS ORDERED: Lidocaine -MPF 2% 2 ML VIAL ONE (11:55)
[2020-10-06] MEDS ORDERED: Ondansetron 4 MG/2 ML VIAL ONE (12:26)
[2020-10-06] MEDS ORDERED: Acetaminophen 325 MG TABLET PO PRN (13:40)
[2020-10-06] MEDS ORDERED: Naloxone 0.4 MG/ML INJ IVP PRN (13:40)
[2020-10-06] MEDS ORDERED: Ondansetron 4 MG/2 ML VIAL IVP PRN (13:40)
[2020-10-06] MEDS ORDERED: 0.9 % Sodium Chloride 1,000 ML IVC SCH (16:30)
[2020-10-06] MEDS: Metoprolol XL (24 HR) Succ 25 MG TAB.ER.24H PO SCH (20:24)
[2020-10-06] MEDS ORDERED: Metoprolol XL (24 HR) Succ 25 MG TAB.ER.24H PO SCH (21:00)
[2020-10-07 02:55] VITALS: O2SAT 96
[2020-10-07] MEDS: Insulin LISPRO 300 UNITS/3 ML VIAL SUBQ SCH (05:40)
[2020-10-07 07:10] VITALS: BP 103/64; PULSE 57; TEMP 97.7
[2020-10-07 08:27] LABS: Hematocrit 38.5 % (37.5-50.1); Hemoglobin 12.4 g/dL (12.9-16.9); Mean Corpuscular HGB Conc 32.2 g/dL (31.6-35.5); Mean Corpuscular Hemoglobin 28.9 pg (28.0-33.3); Mean Corpuscular Volume 89.7 fL (83.0-100.0); Platelet Count 164 K/mcL (140-400); Red Blood Count 4.29 M/mcL (4.19-5.50); Red Cell Distribution Width 13.5 % (11.5-14.5); White Blood Count 6.6 K/mcL (4.3-11.1)
[2020-10-07 08:50] LABS: BUN/Creatinine Ratio 20 (6-26); Blood Urea Nitrogen 18 mg/dL (8-23); Carbon Dioxide 26 mEq/L (23-29); Chloride 105 mEq/L (98-107); Glucose 153 mg/dL (70-105); Osmolality,Calculated 293 (280-300); Sodium 139 mEq/L (136-145); eGFR For African Americans > 60 (> 60); eGFR For Non-African Americans > 60 (> 60)
[2020-10-07] MEDS ORDERED: Finasteride 5 MG TABLET PO SCH ×2 (09:00)
[2020-10-07] MEDS ORDERED: cefTRIAXone 1,000 MG in 0.9 % Sodium Chloride Mini Bag 100 ML IVPB SCH (09:00)
[2020-10-07] MEDS ORDERED: Cyanocobalamin (B-12) 1,000 MCG TABLET PO SCH ×2 (09:00)
[2020-10-07] MEDS ORDERED: Aspirin Enteric Coated 81 MG Tablet PO SCH (09:00)
[2020-10-07] MEDS ORDERED: Aspirin 81 MG TAB.CHEW PO SCH (09:00)
[2020-10-07] MEDS: Metoprolol XL (24 HR) Succ 25 MG TAB.ER.24H PO SCH (09:10)
== END 2020-10-07 10:19 | disposition home or self-care (01) | DRG 661 ==
LOC: EMEROOARM 17:39 → 3BNU 17:39 → SUATTDRO 22:29 → 3BNU 10-06 00:05
PROVIDERS: ADMIT Student in an Organized Health Care Education/Training Program; ATTEND Nurse Practitioner